=== PATIENT | male | born 1970 | race Caucasian/White ===

== ENCOUNTER 2023-08-12 21:44 | Observation (INO) | payer MEDICARE, OTHER, SELFPAY ==
[2023-08-12 19:50] VITALS: BP 117/65
[2023-08-12 20:00] VITALS: BP 124/72
[2023-08-12] MEDS: NSS 500 IV (20:45)
--- NOTE | 2023-08-12 20:47 | ED.GENMED ---
History of Present Illness
General
Chief Complaint: Skin Problem
Source: spouse
Exam Limitations: non verbal-adult
Time Seen by Provider: 08/12/23 20:11
History of Present Illness
History of Present Illness:
This is a 52 year old male that is brought in by ambulance with c/o open sacral wound. 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 Last night his bed broke and he was unable to be turned and he was in a sitting position for 24
hours. States that know he has an open wound on the sacral area. States that they can't get the bed fixed until tomorrow. States that he also normally wears a [place] cath and he has excoriation on the penis as this was unable to be removed. Denies
any fever, chills, nausea, vomiting, diarrhea.
Past History
Past History
ED Past Medical History: CVA, HTN, Hypercholesterolemia, Seizures and Other (PNA, UTI,, Hydrocephalus, Blind, Eczema, left foot drop, )
ED Past Surgical History: Brain (Craniotomy, FULL STACK ENGINEER shunt), Orthopedic (Right shoulder surgery, Left knee surgery, left foot tendon release,) and Other (G-tube, FULL STACK ENGINEER shunt, cranioplasty, Feb 2020 skin flap surgery to sacral area)
Social History
Tobacco: Non-smoker
Alcohol: None
Drug: None
Personal:
Living: with family
Employment: Disabled
Family History
Family History: Diabetes
Review of Systems
Review of Systems
Other source history: family
All Other Systems: ROS reviewed and negative except as documented in HPI and ROS
Constitutional: Reports no symptoms; Denies fever or chills
EENT: Reports no symptoms
Respiratory: Reports no symptoms
Cardiac: Reports no symptoms
ABD/GI: Denies abdominal pain, nausea, vomiting or diarrhea
: Reports incontinence
Musculoskeletal: Reports no symptoms
Skin: Reports other (Open wound left base at buttocks and top of leg. )
Neurological: Reports no symptoms
Psychiatric: Reports no symptoms
Phy Exam
General Physical Exam
General Presentation: no apparent distress
General age: appears stated age
General Skin: warm and dry
General Habitus: debilitated
General Mental: usual mental status
General Hydration: dry mucous membranes
ENT Exam
ENT Exam: TM's normal
Additional ENT: Patient will open mouth slightly,
Eye Exam
Eye Exam: other (Blind)
Cardiovascular Exam
Cardiovascular Exam: regular rate/rhythm, no edema and normal peripheral pulses
Pulmonary Exam
Pulmonary Exam: lungs clear, no respiratory distress, no rales, chest non tender, no crackles, no rhonchi, no wheezing and no cough
Gastrointestinal Exam
Gastrointestinal Exam: normal bowel sounds, non tender, soft, no organomegaly, no pulsatile mass and non distended
External Findings: gastrostomy tube
Musculoskeletal Exam
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
Skin Exam
Skin Exam: normal color, warm/dry and other (Head of penis excoriated and open wound on the left buttock area at the bend of the left leg. Red, )
Psychiatric Exam
Psychiatric Exam: other (No verbal response)
Course
Orders/Labs/Results
Orders:
Orders
08/12/23 20:36
0.9% Sodium Chloride 500 ml [Nss] 500 ml IV BOLUS
08/12/23 20:41
Basic Metabolic Panel Urgent
Complete Blood Count/With Diff Urgent
Lactic Acid Urgent
Wound Culture [Wound/Abscess/Other Culture] Urgent
LIAM Source: Buttock
Specimen Description:
Date Specimen was Collected: 08/12/23
Time Specimen was Collected: 20:39
08/12/23 21:30
Admit/Transfer Patient As Directed
Co-Sign Provider:
Level of Care: Observation services
Assign to:: Medical/Surgical
Physician / Group: [email or web address]
Diagnosis: Chronic IV sacral decubitus ulcer ( POA) Excoriated Glan penis due to [place]
Reason for Hospitalization: Chronic IV sacral decubitus ulcer ( POA)
Excoriated Glan penis due to [place] cath
Decompensated Chr FTT with disruption of care due to Malfunctioning hopsital bed
08/12/23 21:32
Code Status As Directed
Resuscitation Status: Do not resuscitate
Reached after discussion with pt or family/Healthcare POA: Yes
Decision communicated with: spouse ( POA)
DNR Bracelet Application ONCE
08/12/23 22:43
Bisacodyl [Dulcolax] 10 mg RECTAL [id number] PRN
Dextrose 5%/0.9%Sodchl 1000 ml [D5/0.9% Sodium Chloride] 1,000 ml IV 40 mls/hr
Docusate W/Senna [Senokot-S] 1 tablet PO BIDPRN PRN
Polyethylene Glycol Powder [Miralax] 17 grams PO DAILYPRN PRN
08/12/23 22:43
DIETARY CONSULT Routine
Reason for Consult: PEG nutrition, Mod mal nutrition
WOUND/OSTOMY CONSULT Routine
Reason for Consult: IV sacral decube,Excoriated Glan penis due to [place]
Activity As Directed
Activity Level: With Assistance
Intake/ Output As Directed
Frequency: Per unit guidelines
Vital Signs As Directed
Frequency: Per unit guidelines
Weight As Directed
Frequency: Weekly
DX Deep Vein Thrombosis Video Routine
08/13/23 Breakfast
NPO
Allow oral meds: No
Allow clear liquids: No
08/13/23 18:00
Enoxaparin Sodium [Lovenox] 40 mg SC QPM
08/14/23 06:00
Basic Metabolic Panel IN AM
Complete Blood Count/No Diff IN AM
Abnormal Lab Results
08/12/23
20:41
RBC 4.64 L 10^6/uL
(4.70-6.10)
MPV 10.9 H fL
(7.4-10.4)
Abs Immat Gran (auto) 0.1 H 10^3/uL
(0-0.05)
Absolute Monos (auto) 0.7 H 10^3/uL
(0.1-0.6)
Immature Gran % 0.7 H %
(0-0.5)
Sodium 133 L mmol/L
(135-145)
Chloride 97 L mmol/L
(98-107)
BUN 21 H mg/dl
(9-20)
Creatinine 0.4 L mg/dL
(0.7-1.3)
08/12/23 20:41
08/12/23 20:41
CBC normal, Lactic acid normal at 1.7, Very slight Dehydration.
Vital Signs
Initial and Last Documented VS:
Initial Vital Signs
Temp Pulse Resp BP Pulse Ox
98.6 F 106 16 117/65 95
08/12/23 19:50 08/12/23 19:50 08/12/23 19:50 08/12/23 19:50 08/12/23 19:50
Last Documented Vital Signs
Temp Pulse Resp BP Pulse Ox
98.6 F 98 18 99/65 98
08/12/23 23:16 08/12/23 23:16 08/12/23 23:16 08/12/23 23:16 08/12/23 23:16
MDM/Problems Addressed
Differential Diagnosis Includes:
Social admission. sacral wound
MDM/Problems Addressed:
This is a 52 year old male that comes in with c/o open sacral wound. states that they turn him every hour and his bed broke and he was in a sitting position for 24 hours. Now has open sacral wound and his Penis is excoriated as they were
unable to get the [place] cath off.
Will check labs. Wound culture and admit. Hospitalist notified.
Chronic conditions affecting care:
Bedridden, history of decub
Acute Exacerbation and/or Progression of Chronic Illness:
sacral decub
*Pulse Oximetry
Patient hypoxic: no
*EKG
Interpreted by ED Provider?: NA
Rate: EKG- N/A
*Labor Relations Manager Interpretation
Rate: tachycardiac
Heart Rate: 107
Rhythm: sinus arrhythmia
*Critical Care Note
Total Time (30-74mins, 75-104mins- exclusive of procedures): Not Applicable
ED Attending Note
-
Portions of this chart may have been created with voice recognition software.� Occasional wrong word or��sound alike� substitutions may have occurred due to the inherent limitations of voice recognition software.
Discharge Plan
Departure
Patient Disposition: Admit
Admit to: Med/Surg
Presentation/result/management discussed w/ accepting MD/DO: Hospitalist
Patient with high blood pressure during this ER visit?: No
Condition: Good
Covid-19: Not Applicable
Discharge Problem:
Open wound of left buttock
Interventions
Interventions:
*Risk Screen - Suicide Last Done: 08/12/23 19:50
*General Assessment Last Done: 08/12/23 19:50
*Neglect/Abuse Screening Last Done: 08/12/23 19:50
*ED COVID-19 Vaccine History Last Done: 08/12/23 19:50
*Nursing Disposition Last Done: 08/12/23 22:16
ED-Skin Assessment Last Done: 08/12/23 20:01
Discharge Date and Time
Discharge Date/Time: 08/12/23 22:17
[2023-08-12 20:54] LABS: % Basophils 0.5 % (0-2); % Eosinophils 1.1 % (0-6); % Immature Granulocytes 0.7 % (0-0.5); % Lymphocytes 30.1 % (20.5-51.1); % Monocytes 6.7 % (1.7-9.3); % Neutrophils 60.9 % (42.2-75.2); Absolute Basophils 0.1 10^3/uL (0-0.2); Absolute Eosinophils 0.1 10^3/uL (0-0.7); Absolute Immature Granulocytes 0.1 10^3/uL (0-0.05); Absolute Lymphocytes 3.1 10^3/uL (1.2-3.4); Absolute Monocytes 0.7 10^3/uL (0.1-0.6); Absolute Neutrophils 6.2 10^3/uL (1.4-6.5); Hematocrit 41.5 % (39.0-52.0); Hemoglobin 14.2 g/dL (13.0-18.0); Mean Corp Hgb Conc. 34.2 g/dL (33.0-37.0); Mean Corpuscular Hgb 30.6 pg (27.0-31.0); Mean Corpuscular Volume 89.4 fL (80.0-94.0); Mean Platelet Volume 10.9 fL (7.4-10.4); Nucleated Red Blood Cells % 0 % (-); Platelet Count 181 10^3/uL (130-400); Red Blood Cell Count 4.64 10^6/uL (4.70-6.10); Red Cell Dist. Width 13.6 % (11.5-14.5); White Blood Cell Count 10.2 10^3/uL (4.8-10.8)
[2023-08-12 21:00] VITALS: BP 98/71
[2023-08-12 21:07] LABS: Lactic Acid 1.7 mmol/L (0.7-2.0)
--- NOTE | 2023-08-12 21:23 | HPS.HSE ---
Addendum entered and electronically signed by Garth Sykes MD 08/12/23 21:59:
Laboratory Tests
08/12/23
20:41
Sodium 133 L
Chloride 97 L
BUN 21 H
Creatinine 0.4 L
eGFR > 60.00
Original Note:
Family Physician
-
Family Physician: Michael Mar
Chief Complaint
-
sacral decub ulcer and disruption of care due to Malfunctioning hopsital bed
History of Present Illness
I could not get any information from the patient
Information gathered by chart review and speaking with the ER staff.
HPI
52M Bed bound , total dependent care known IV Sacral DU ( POA) HX CVA with Lt sided hemiparesis PEG dependent nurtion, Sz disorder, HLD, HTN BiB ambulance;
Per
- He was in sitting position for last 24 hrs due to malfunctioning hospital bed at home since last night
- can't get the bed fixed until tomorrow ??
- Known HX chr sacral decub
- Wear [place] cath and he has excoriation on the penis as this was unable to be removed.
Denies any fever, chills, nausea, vomiting, diarrhea.
Medical History
Past Medical History
Past Medical History: Reports Other
Additional Past Medical History:
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
HX stroke with left hemiparesis.
HX craniotomy, status post LEAD CARPENTER shunt.
HXChronic dysphagia with aspiration risk, with PEG tube.
Chronic rose
HX aspiration pneumonia with vent dependent respiratory failure.
Moderate protein calorie malnutrition.
Essential hypertension with labile hypotension.on lisinopril p.r.n.
Past Surgical History: Reports Other
Additional Past Surgical History:
Craniotomy , LEAD CARPENTER shunt
Right shoulder surgery
Left knee surgery, left foot tendon release
G-tube, LEAD CARPENTER shunt, cranioplasty
Feb 2020 skin flap surgery to sacral area
Social History
Tobacco: Non-smoker
Alcohol: None
Drug: None
Personal:
Living: With Family
Family History
Family History: Not pertinent
Allergies / Home Medications
Allergies reflects when Allergies were last updated in [facility].
Home Medications with original date entered in [facility]
Allergy/Medication List:
Allergies
Allergy/AdvReac Type Severity Reaction Status Date / Time
morphine Allergy Itching Verified 10/20/20 23:16
nitrofurantoin Allergy low WBCs Verified 10/20/20 23:16
macrocrystalline
[From Macrobid]
Home Medications
atorvastatin 10 mg tablet 10 mg feeding tube HS High cholesterol 08/04/14
sucralfate 1 gram tablet 1,000 mg feeding tube BID Gastrointestinal issue 08/04/14
amantadine HCl 50 mg/5 mL oral solution 100 mg PEG BID@0700,1300 motor symptoms 08/21/17
aspirin 325 mg tablet 325 mg feeding tube DAILY Blood clot prevention/tx 08/21/17
baclofen 10 mg tablet 10 mg feeding tube TID Muscle spasms 08/21/17
chlorhexidine gluconate 0.12 % mouthwash 5 ml MM BIDPRN PRN worsening of oral presentation 08/21/17
fluticasone propionate 50 mcg/actuation nasal spray,suspension 2 spray intranasal DAILYPRN PRN allergies 08/21/17
labetalol 100 mg tablet 50 mg feeding tube BIDPRN PRN SBP >140 08/21/17
lacosamide 100 mg tablet (Vimpat) 200 mg feeding tube BID Seizures 08/21/17
lamotrigine 100 mg tablet 200 mg feeding tube BID take with 50mgMENTAL 08/21/17
lamotrigine 25 mg chewable dispersible tablet 50 mg feeding tube BID take with 200mg/MENTAL 08/21/17
lorazepam 0.5 mg tablet 0.5 mg feeding tube HS anxiety 08/21/17
miconazole nitrate 2 % topical powder (Miconazorb AF) 1 applic topical BID palm and groin 08/21/17
mupirocin 2 % topical ointment 1 applic topical BID peg site 08/21/17
polyvinyl alcohol-povidone (PF) 1.4 %-0.6 % eye drops in a dropperette (Refresh Classic (PF)) 1 drops BOTH EYES Q2HPRN PRN dry eyes 08/21/17
bisacodyl 5 mg tablet,delayed release 5 mg feeding tube DAILYPRN PRN constipation 04/30/18
clobetasol-emollient 0.05 % topical cream 1 applic TP BIDPRN PRN eczema behind ears 04/30/18
diazepam 5 mg/5 mL (1 mg/mL, 5 mL) oral solution 2 mg PO BID agitation/anxiety 04/30/18
docusate sodium 50 mg/5 mL oral liquid 100 mg feeding tube DAILYPRN PRN constipation 04/30/18
mirtazapine 15 mg tablet 15 mg feeding tube HS Sleep 04/30/18
sodium phosphates 19 gram-7 gram/118 mL enema (Enema) 118 ml RC [id number] PRN no bm in 3 days 04/30/18
tamsulosin 0.4 mg capsule 0.4 mg feeding tube HS Urinary issue 04/30/18
venlafaxine 50 mg tablet 75 mg feeding tube DAILY@1300 Mental Health/Anxiety 04/30/18
venlafaxine 50 mg tablet 150 mg feeding tube DAILY Mental Health/Anxiety 04/30/18
acetaminophen 650 mg/20.3 mL oral solution 650 mg (20.3 mL) PO Q4HPRN PRN temp 100.5, moderate pain ##400 05/08/18
albuterol sulfate 2.5 mg/3 mL (0.083 %) solution for nebulization 2.5 mg (3 mL) inhalation R Q4HPRN PRN Wheezing, SOB ##1 07/12/19
cranberry extract 500 mg capsule 425 mg feeding tube TID Supplement 10/08/20
diazepam 5 mg/5 mL (1 mg/mL, 5 mL) oral solution 2 mg feeding tube DAILYPRN PRN agitation 10/08/20
lisinopril 20 mg tablet 20 mg feeding tube DAILYPRN PRN SBP >140 10/08/20
polyethylene glycol 3350 17 gram oral powder packet 17 grams feeding tube DAILYPRN PRN constipation 10/08/20
methenamine hippurate 1 gram tablet 1 g feeding tube BID Infection ##0 10/12/20
Review of Systems
-
Constitutional: Reports No Symptoms
EENT: Reports No Symptoms
Respiratory: Reports No Symptoms
Cardiac: Reports No Symptoms
Abdomen/GI: Reports No Symptoms
: Reports See HPI
Musculoskeletal: Reports No Symptoms
Skin: Reports See HPI
Neurological: Reports No Symptoms
Endocrine: Reports No Symptoms
Hematologic/Lymphatic: Reports No Symptoms
Psych: Reports No Symptoms
Physical Exam
Vital Signs
Vital Signs
Temp Pulse Resp BP Pulse Ox
98.6 F 99 19 98/71 98
08/12/23 19:50 08/12/23 21:15 08/12/23 20:45 08/12/23 21:00 08/12/23 20:15
Physical Exam
General: Appears Chronically Ill; No Conversant (non verbal , constant corse tremors )
HEENT: Other (Legally blind )
Respiratory: Non Labored Respirations
Cardiac: S1/S2 and Regular Rhythm
GI: Soft, Non Tender, Ostomy (PEG ) and Other
Genito-urinary: Other (Glan penis is excoriated)
Skin: Ulcers (, open wound on the left buttock area at the bend of the left leg. 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
Neuro: Awake
Psych: Other
Laboratory Results
-
08/12/23 20:41
08/12/23 20:41
Laboratory Results
Lactic Acid 1.7 mmol/L (0.7-2.0) 08/12/23 20:41
Total Bilirubin Cancelled 08/12/23 20:41
AST Cancelled 08/12/23 20:41
ALT Cancelled 08/12/23 20:41
Alkaline Phosphatase Cancelled 08/12/23 20:41
Data Reviewed
-
Lab Data: Labs Reviewed by me
Old Records: Reviewed
Impression/Plan
-
Reviewed VS: Afebrile HR 100 BP 117/65 - 125/72 RR20 POx 98
Data
WCC 10
Pending BMP
Pending LA
WD cx sent
Last hospitalist admission:10/20/20 - 10/25/20
PRIMARY DIAGNOSIS:
1. Sepsis probably due to left ischial tuberosity osteomyelitis.
2. Acute hypoxic respiratory failure which resolved, patient was weaned down to room air.
3. Dirty urinalysis with possible urinary tract infection. However, reports the sample was obtained from the bag.
ID recommends to observe off antibiotic.
ASSESSMENT & PLAN
Chronic IV sacral decubitus ulcer ( POA) with prior HX left ischial tuberosity osteomyelitis: Prior HX skin flap surgery to sacral area ( Feb 2020 Dr Schroeder)
Excoriated Glan penis due to [place] cath
- Hold off any further ABx till Wd consult
- Wd care evaluation
Chr FTT with disruption of care due to Malfunctioning hopsital bed
Chr PEG nutrition: Moderate protein calorie malnutrition.
[place] cath: chr
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
- IVF
- adhesion tester consult for PEG TF
- CRM consult
Chr pre existing condition:
HX stroke with left hemiparesis.
HX craniotomy, status post LEAD CARPENTER shunt.
HX Chronic dysphagia with aspiration risk, with PEG tube.
Chronic cath
HX aspiration pneumonia with vent dependent respiratory failure.
Essential hypertension with labile hypotension
- Pending Rx reconciliation
DVT Px: LMWH
Code: DNR per POA/NoK spouse in the presence of ER MILLY/ Jennie Mathews
Obs MS
[2023-08-12 21:52] LABS: Blood Urea Nitrogen 21 mg/dl (9-20); Calcium 9.7 mg/dl (8.4-10.2); Carbon Dioxide 28 mmol/L (22-30); Chloride 97 mmol/L (98-107); Glucose 99 mg/dl (70-99); Sodium 133 mmol/L (135-145); eGFR > 60.00
[2023-08-12 23:16] VITALS: BP 99/65
[2023-08-13] MEDS: D5/0.9% SODIUM CHLORIDE 1000 IV (00:14)
[2023-08-13] MEDS: ATIVAN 0.5 MG TUBE (00:15)
[2023-08-13] MEDS: TYLENOL ORAL SOLUTION 650 MG PO (00:25)
[2023-08-13] MEDS: REMERON 15 MG TUBE (00:26)
[2023-08-13] MEDS: VIMPAT 200 MG TUBE ×2 (00:38→10:04)
[2023-08-13] MEDS: BACTROBAN 2% OINTMENT 1 APPLIC TOPICAL ×2 (00:44→10:04)
--- NOTE | 2023-08-13 05:04 | PTCARENOTE ---
Patient received from ED via stretcher and was pulled to bed by staff. Patient's spouse and patient's caregiver at the bedside. They were oriented to room and surroundings. Patient nnverbal, tremores noted., left hemiparesis and b/l foot drop
noted. HRR, Breath Sounds are decreased. +BS, incontinent of bowel and bladder. Wound care as documented. Patient on air bed for sacral wound. IVF as ordered. VSS
[2023-08-13] MEDS: SYMMETREL SYRUP 100 MG TUBE (06:10)
[2023-08-13 07:00] VITALS: BP 102/73
--- NOTE | 2023-08-13 11:50 | WOUNDNOTE ---
WON RN note: Patient admitted with open wound of L buttock.
See H&P for complete history. Patient lives with his and has caregiver Marley.
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 R ischial PI stage 4-flap done.
Wound Location and type/assessment: Patient known to service last seen 10/21/20 for R ischial stage 4 PI. Since then wound healed s/p flap. Now presents with old healed L ischial PI re opened wound. Caregiver Marley reports another caregiver was
with patient and air bed became locked in a sitting position, couldn't get it unlocked for 24hrs. Unable to reach bed service for assistance and patient's also tried to contact bed company. Caregiver states his wound opened back up due to
prolonged sitting. Has a ROHO cushion for chair but was unable to get patient out of sitting position in locked bed. Now admitted with suspected stage 3 PI on L ischium and stage 2 PI on L posterior thigh. Has few scattered darker red areas within
Ischium wound that may evolve and open. Tiny open area in center of larger Ischial wound that is approximately 0.5x0.5x0.5cm no palpable bone, scant chatterjee slough at base, remainder or wound pink. Caregiver also reported that [place] condom catheter was
on for 24 hrs causing mild excoriation to tip of penis, usually only used at night time. Heels are intact, old scars on ankles form previous abrasions. Has offloading heel boots at home, did not bring in. Buttock wound culture pending. Incontinent
of loose stools.
Appetite: NPO. Has tube feeding. Protein supplement in feedings daily.
Pressure redistribution devices in place: Versa care Air bed. Pillow under calves. Called [employer] for Tru[employer]ue lite heel boots.
Plan: L ischial wound care done with silver alginate, dry gauze dressing, can resume use of silver collagen dressing at home, Marley confirmed has used in past with good results. Foams applied to heels to protect and offloading boots. Skin care
and barrier cream to penis prn. is working on purchasing a new air bed, contacting company today reports caregiver. Spoke with JEANNIE Patterson and updated on bed situation, may have other ideas to recommend to family. Also aware will need VN with
wound care nurse to follow patient and wounds. Recommend following with wound care center if wound not healing. Will confirm orders with hospitalist. Discussed plan with [facility] Salcedo, Care plan to be updated and will follow as needed.
--- NOTE | 2023-08-13 12:16 | W.DS.TRANS ---
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
-
Discharge Instructions:
Discharge Diagnosis/Procedures Chronic failure to thrive.
Chronic sacral wound
Diet Tube feeding
Instructions:
Stand-Alone Forms:
Changes to Home Medications: No
Discharge Medications:
DC Medications w/original date entered in [facility]
atorvastatin 10 mg tablet 10 mg feeding tube HS High cholesterol 08/04/14
sucralfate 1 gram tablet 1,000 mg feeding tube BID Gastrointestinal issue 08/04/14
amantadine HCl 50 mg/5 mL oral solution 100 mg PEG BID@0700,1300 motor symptoms 08/21/17
aspirin 325 mg tablet 325 mg feeding tube DAILY Blood clot prevention/tx 08/21/17
baclofen 10 mg tablet 10 mg feeding tube TID Muscle spasms 08/21/17
chlorhexidine gluconate 0.12 % mouthwash 15 ml MM BID 08/21/17
fluticasone propionate 50 mcg/actuation nasal spray,suspension 2 spray intranasal DAILYPRN PRN allergies 08/21/17
labetalol 100 mg tablet 25 mg feeding tube BIDPRN PRN SBP >140 08/21/17
lacosamide 100 mg tablet (Vimpat) 200 mg feeding tube BID Seizures 08/21/17
lamotrigine 100 mg tablet 200 mg feeding tube Q12H take with 50mgMENTAL 08/21/17
lamotrigine 25 mg chewable dispersible tablet 50 mg feeding tube BID take with 200mg/MENTAL 08/21/17
lorazepam 0.5 mg tablet 0.5 mg feeding tube HS anxiety 08/21/17
miconazole nitrate 2 % topical powder (Miconazorb AF) 1 applic topical BID palm and groin 08/21/17
mupirocin 2 % topical ointment 1 applic topical BID peg site 08/21/17
bisacodyl 5 mg tablet,delayed release 5 mg feeding tube DAILYPRN PRN constipation 04/30/18
clobetasol-emollient 0.05 % topical cream 1 applic TP BID 04/30/18
docusate sodium 50 mg/5 mL oral liquid 100 mg feeding tube DAILYPRN PRN constipation 04/30/18
mirtazapine 15 mg tablet 15 mg feeding tube HS Sleep 04/30/18
sodium phosphates 19 gram-7 gram/118 mL enema (Enema) 118 ml RC [id number] PRN no bm in 3 days 04/30/18
tamsulosin 0.4 mg capsule 0.4 mg feeding tube HS Urinary issue 04/30/18
venlafaxine 50 mg tablet 75 mg feeding tube TID Mental Health/Anxiety 04/30/18
acetaminophen 650 mg/20.3 mL oral solution 650 mg (20.3 mL) PO Q4HPRN PRN temp 100.5, moderate pain ##400 05/08/18
albuterol sulfate 2.5 mg/3 mL (0.083 %) solution for nebulization 2.5 mg (3 mL) inhalation R Q4HPRN PRN Wheezing, SOB ##1 07/12/19
cranberry extract 500 mg capsule 425 mg feeding tube TID Supplement 10/08/20
lisinopril 20 mg tablet 20 mg feeding tube DAILY 10/08/20
polyethylene glycol 3350 17 gram oral powder packet 17 grams feeding tube DAILYPRN PRN constipation 10/08/20
methenamine hippurate 1 gram tablet 1 g feeding tube BID Infection ##0 10/12/20
erythromycin 5 mg/gram (0.5 %) eye ointment 0.5 inch ophthalmic (eye) TID 08/13/23
hypromellose 2.5 % eye drops 1 drp ophthalmic (eye) Q2 08/13/23
methenamine hippurate 1 gram tablet (Hiprex) 1 g feeding tube BID 08/13/23
Home Medication Changes
Pending Results: No
--- NOTE | 2023-08-13 12:27 | CM ---
Patient seen at bedside with patient and caregiver at bedside. Patient non verbal and bed bound. Patient indicated that Dr. Shelton is his PCP and they use the [facility] on [facility]. Patient had wheelchair van and will
transport patient home, CM reviewed OBS/[place] form with her and signed form placed on chart. CM called to [facility] to request wound care for patient. CM will send referral via all scripts. CM will continue to follow for discharge planning needs.
Plan; home with caregiver in place/[facility] for wound care.
[2023-08-13 13:33] VITALS: BP 119/81
== END 2023-08-13 14:39 | disposition home health service (06) ==
LOC: 3 WEST ACU 21:44
PROVIDERS: Clinical Nurse Specialist Family Health; ADMITTING PHYSICIAN Internal Medicine; ATTENDING PHYSICIAN Internal Medicine; EMERGENCY PHYSICIAN Emergency Medicine; FAMILY PHYSICIAN Internal Medicine Geriatric Medicine
DX: A41.9 Sepsis, unspecified organism (principal); L89.154 Pressure ulcer of sacral region, stage 4; J96.01 Acute respiratory failure with hypoxia; R62.7 Adult failure to thrive; E78.00 Pure hypercholesterolemia, unspecified; M21.372 Foot drop, left foot; I10 Essential (primary) hypertension; E78.5 Hyperlipidemia, unspecified; G40.909 Epilepsy, unspecified, not intractable, without status epilepticus; E44.0 Moderate protein-calorie malnutrition; I69.354 Hemiplegia and hemiparesis following cerebral infarction affecting left non-dominant side; S30.812A Abrasion of penis, initial encounter; Y33.XXXA Other specified events, undetermined intent, initial encounter; Y93.89 Activity, other specified; Y92.9 Unspecified place or not applicable; Z68.23 Body mass index [BMI] 23.0-23.9, adult; Z87.440 Personal history of urinary (tract) infections; Z87.01 Personal history of pneumonia (recurrent); Z66 Do not resuscitate; Z83.3 Family history of diabetes mellitus; Z74.01 Bed confinement status; Z93.1 Gastrostomy status; Z98.2 Presence of cerebrospinal fluid drainage device; Z88.3 Allergy status to other anti-infective agents; Z88.5 Allergy status to narcotic agent
CPT/HCPCS: 80048; 83605; 85025; 87070; 87077; 87186; 87205; 96360; 99285; G0378

== ENCOUNTER 2024-09-20 14:09 | Inpatient (IN) | payer MEDICARE, OTHER, SELFPAY ==
[2024-09-20] VITALS (7 sets, daily range): BP systolic 95–122; BP diastolic 65–75; BMI 21.5
--- NOTE | 2024-09-20 10:49 | ED.GENMED ---
History of Present Illness
General
Chief Complaint: Fever
Time Seen by Provider: 09/20/24 10:26
History of Present Illness
History of Present Illness:
54-year-old male with prior history of stroke with history of hemiparesis and nonverbal status, PEG tube dependent, presenting to the emergency department for fever. Patient presents with , from home, spiked a temperature last evening.
Patient's stroke was about 10 years ago, has had progressive decline, which has been worsening in the past several weeks with increased weight loss and worsening sacral decubitus wound. ultimately is seeking hospice care. Patient pulled out
his PEG tube prior to arrival. Patient is unable to answer any additional questioning given his chronic history.
Past History
Past History
ED Past Medical History: CVA, HTN, Hypercholesterolemia, Seizures and Other (PNA, UTI,, Hydrocephalus, Blind, Eczema, left foot drop, )
ED Past Surgical History: Brain (Craniotomy, FINISHER FINE DIAMOND DIES shunt), Orthopedic (Right shoulder surgery, Left knee surgery, left foot tendon release,) and Other (G-tube, FINISHER FINE DIAMOND DIES shunt, cranioplasty, Feb 2020 skin flap surgery to sacral area)
Social History
Tobacco: Non-smoker
Alcohol: None
Drug: None
Personal:
Living: with family
Employment: Disabled
Family History
Family History: Diabetes
Phy Exam
Physical Exam
Physical Exam:
General: Dry mucous membranes
HEENT: protecting airway, ocular abnormality to the left eye, reported as chronic, pinpoint pupils, nonreactive
Neck: appears supple
CV: Tachycardic, regular rhythm, no evidence of cyanosis
Resp: No accessory muscle use, no increased work of breathing, lungs clear to auscultation bilaterally
Abd: No distention
Extremities: No deformities, no swelling
Neuro: Awake, no verbal or motor response
: deferred
Rectal: deferred
Psych: Normal affect
Skin: Stage IV sacral decubitus ulceration
Course
Orders/Labs/Results
Orders:
Orders
09/20/24 10:39
Electrocardiogram (*1) Urgent
Reason for Study: Other
Other Reason for Exam: Possible Sepsis
EKG- Treatment ONCE
09/20/24 10:41
Complete Blood Count/With Diff Urgent
Comprehensive Metabolic Panel Urgent
Lactic Acid Q4H
Comment: ON ICE, CANCEL 2ND ORDER IF FIRST LACTIC ACID LEVEL <2
Blood Culture Q20M
[facility] Source: Blood/Venous
Specimen Description:
Comment: Urgent from separate sites. If patient screens positive for possible sepsis
Blood Culture Q20M
[facility] Source: Blood/Venous
Specimen Description:
Comment: Urgent from separate sites. If patient screens positive for possible sepsis
09/20/24 10:45
Case Management Consult ONCE
Case Management Consult: Hospice
Hospice: Evaluation and treat
0.9% Sodium Chloride 1000 ml [Nss] 1,000 ml IV BOLUS
Acetaminophen 1000MG/100Ml [Ofirmev] 1,000 mg in 100 ml IV ONCE
Acetaminophen IV Indication:: No OK & No Enteral Access
09/20/24 14:45
Lactic Acid Q4H
Comment: ON ICE, CANCEL 2ND ORDER IF FIRST LACTIC ACID LEVEL <2
Abnormal Lab Results
09/20/24
10:41
RBC 4.41 L 10^6/uL
(4.70-6.10)
Hgb 12.6 L g/dL
(13.0-18.0)
MCHC 31.2 L g/dL
(33.0-37.0)
Absolute Neuts (auto) 6.7 H 10^3/uL
(1.4-6.5)
Absolute Lymphs (auto) 1.0 L 10^3/uL
(1.2-3.4)
Neutrophils % 81.5 H %
(42.2-75.2)
Lymphocytes % 12.3 L %
(20.5-51.1)
Carbon Dioxide 32 H mmol/L
(22-30)
BUN 21 H mg/dl
(9-20)
Creatinine 0.6 L mg/dL
(0.7-1.3)
Glucose 111 H mg/dl
(70-99)
Lactic Acid 2.7 H mmol/L
(0.7-2.0)
09/20/24 10:41
09/20/24 10:41
Vital Signs
Initial and Last Documented VS:
Initial Vital Signs
Temp
100.5 F H
09/20/24 10:33
Last Documented Vital Signs
Temp Pulse Resp BP Pulse Ox
100.5 F H 105 19 122/75 95
09/20/24 10:33 09/20/24 11:30 09/20/24 11:30 09/20/24 11:26 09/20/24 11:30
MDM/Problems Addressed
MDM/Problems Addressed:
54-year-old male with history of prior stroke with nonverbal status and PEG tube dependence as well as sacral decubitus ulceration presenting for fever and initiation of hospice. Vital signs on arrival are significant for fever and tachycardia
On exam, patient is overall very unwell in appearance, currently meeting criteria for SIRS with suspected source being likely sacral decubitus ulceration. However, family arrives, notes that they would like to pursue hospice. Will send laboratory
analysis at this time until we discussed with case management and hospice. Holding antibiotics. Will start patient on fluids, is not currently getting any feeds, pulled out his PEG tube prior to arrival. Will administer IV Tylenol for comfort and
fever.
12:10 -discussed with both case management and hospice. Advised admission under comfort care and will reassess tomorrow for initiation of hospice. Hospice nurse at bedside
*Pulse Oximetry
SaO2: 98
Oxygen Mode of Delivery: Room air
Patient hypoxic: no
*Critical Care Note
Total Time (30-74mins, 75-104mins- exclusive of procedures): Not Applicable
ED Attending Note
-
Portions of this chart may have been created with voice recognition software.� Occasional wrong word or��sound alike� substitutions may have occurred due to the inherent limitations of voice recognition software.
Discharge Plan
Departure
Prescriptions:
No Action
atorvastatin 10 MG tablet
10 mg feeding tube HS
sucralfate 1 GRAM tablet
1,000 mg feeding tube BID
amantadine HCl 100 MG/10 ML solution
100 mg PEG BID@0700,1300
Patient Comments:
do not give past 1pm or patient will be up all night as per family and hospital nurse
aspirin 325 MG tablet
325 mg feeding tube DAILY
miconazole nitrate [Miconazorb AF] 1 APPLIC powder
1 applic topical BID
lamotrigine 25 MG tablet, chewable dispersible
50 mg feeding tube BID
Patient Comments:
09/05/17: Patient takes with Lamictal 200mg
lorazepam 0.5 MG tablet
0.5 mg feeding tube HS
baclofen 10 MG tablet
10 mg feeding tube TID
mupirocin 1 APPLIC ointment
1 applic topical BID
Patient Comments:
09/05/17: Apply to PEG tube twice a day
labetalol 100 MG tablet
25 mg feeding tube BIDPRN PRN (Reason: SBP >140)
Patient Comments:
only for sbp>140 hold for sbp<140
fluticasone propionate 1 SPRAY spray,suspension
2 spray intranasal DAILYPRN PRN (Reason: allergies)
lamotrigine 100 MG tablet
200 mg feeding tube Q12H
Patient Comments:
09/05/17: Patient takes with Lamictal 50mg
chlorhexidine gluconate 15 ML mouthwash
15 ml MM BID
lacosamide [Vimpat] 100 MG tablet
200 mg feeding tube BID
tamsulosin 0.4 MG capsule
0.4 mg feeding tube HS
docusate sodium 100 MG/10 ML liquid
100 mg feeding tube DAILYPRN PRN (Reason: constipation)
venlafaxine 50 MG tablet
75 mg feeding tube TID
bisacodyl 5 MG tablet,delayed release (DR/EC)
5 mg feeding tube DAILYPRN PRN (Reason: constipation)
mirtazapine 15 MG tablet
15 mg feeding tube HS
clobetasol-emollient 15 GM cream
1 applic TP BID
Rx Instructions:
and elbow
Enema 135 ML enema
118 ml RC [id number] PRN (Reason: no bm in 3 days)
acetaminophen 650 MG/20.3 ML solution
650 mg PO Q4HPRN PRN (Reason: temp 100.5, moderate pain) Qty: 400 0RF
albuterol sulfate 2.5 MG/3 ML solution for nebulization
2.5 mg inhalation R Q4HPRN PRN (Reason: Wheezing, SOB) Qty: 1 0RF
polyethylene glycol 3350 17 GRAMS powder in packet
17 grams feeding tube DAILYPRN PRN (Reason: constipation)
lisinopril 20 MG tablet
20 mg feeding tube DAILY
Patient Comments:
only for sbp>140 hold for sbp<140
cranberry extract 500 MG capsule
425 mg feeding tube TID
Patient Comments:
powder capsules
methenamine hippurate 1 GRAM tablet
1 g feeding tube BID Qty: 0 0RF
Rx Instructions:
once off Bactrim
methenamine hippurate [Hiprex] 1 gram Tablet
1 g FEEDING TUBE BID
Rx Instructions:
duplicate
erythromycin 5 mg/gram (0.5 %) Ointment
0.5 inch OPHTHALMIC (EYE) TID
hypromellose 2.5 % Drops
1 drp OPHTHALMIC (EYE) Q2
Referrals:
Michael Mar MD [Family Provider, Internal Medicine]
Interventions
Interventions:
*Risk Screen - Suicide Last Done: 09/20/24 11:07
*General Assessment Last Done: 09/20/24 11:07
*Neglect/Abuse Screening Last Done: 09/20/24 11:07
*ED- Fall Risk Assessment Last Done: 09/20/24 11:07
*ED COVID-19 Vaccine History Last Done: 09/20/24 11:07
ED- Neurological Assessment Last Done: 09/20/24 10:34
ED-Skin Assessment Last Done: 09/20/24 10:37
Discharge Date and Time
Print Language: RUSSIAN
[2024-09-20] MEDS: OFIRMEV 100 IV (11:01)
[2024-09-20] MEDS: NSS 1000 IV (11:01)
[2024-09-20 11:17] LABS: Hematocrit 40.4 % (39.0-52.0); Hemoglobin 12.6 g/dL (13.0-18.0); Mean Corp Hgb Conc. 31.2 g/dL (33.0-37.0); Mean Corpuscular Volume 91.6 fL (80.0-94.0); Nucleated Red Blood Cells % 0 % (-); Platelet Count 196 10^3/uL (130-400); Red Cell Dist. Width 13.7 % (11.5-14.5)
--- NOTE | 2024-09-20 11:17 | CM ---
automotive center manager reviewed patient's chart and met with patient and spouse at bedside, per spouse patient is nonverbal, bedbound and patient pulled out his peg tube. Patient has 5 children, per spouse she is interested in hospice and requested evaluation
for GIP, options reviewed and patient's spouse has selected [facility] and referral sent to [facility] for GIP.
Plan; Hospice evaluation for GIP.
[2024-09-20 11:33] LABS: ALT (SGPT) 19 U/L (0-50); AST (SGOT) 22 U/L (17-59); Albumin 4.6 g/dl (3.5-5.0); Alkaline Phosphatase 94 U/L (38-126); Blood Urea Nitrogen 21 mg/dl (9-20); Calcium 9.7 mg/dl (8.4-10.2); Carbon Dioxide 32 mmol/L (22-30); Chloride 100 mmol/L (98-107); Estimated Creatinine Clearance > 125 ml/min; Glucose 111 mg/dl (70-99); Potassium 4.1 mmol/L (3.5-5.1); Sodium 144 mmol/L (135-145); Total Protein 8.0 g/dl (6.3-8.2); eGFR > 60.00
--- NOTE | 2024-09-20 12:36 | HPS.HSE ---
Addendum entered and electronically signed by Cameron Gray MD 09/20/24 14:16:
Seen and examined by me independently in collaboration with the nurse practitioner Edison.
Past medical history/social history/medication/allergies reviewed.
Lab data and imaging data reviewed.
Unfortunate gentleman who had nontraumatic intracranial hemorrhage 11 years ago and has been in persistent vegetative state been taking care at home. Now presents with fever and noted to be septic.
Long discussions with the and one of the son at bedside.
Due to persistent vegetative state and poor prognosis and based on prior wishes of patient and family the decision was made for comfort measures only and treat the symptoms and not the disease process at this point in his life.
We discussed with the about comfort measures. She is agreeable.
He is inpatient appropriate for comfort measures as he is cannot brewing sepsis and might become quickly symptomatic.
Will start patient on comfort measures only. Hold on nutrition and IV fluids and this was discussed with the family.
Original Note:
Family Physician
-
Family Physician: Michael Mar
Chief Complaint
-
fever
History of Present Illness
54-year-old male with prior history of stroke with history of hemiparesis and nonverbal status, PEG tube dependent, presenting to the emergency department for fever. he spiked fever of 103 last night. Patient's stroke was about 10 years ago, has
had progressive decline, which has been worsening in the past several weeks with increased weight loss and worsening sacral decubitus wound.ROS limited.
he had an episode of vomiting yesterday. he also had diarrhea yesterday. he pulled his peg tube yesterday, which was replaced here in the ER. seeking hospice care. she wants to keep him comfort.
patient received Tylenol, normal saline in ER. blood culture sent from ER.
Medical History
Past Medical History
Past Medical History: Reports Other
Additional Past Medical History:
quadriplasty
Migraines
Seizures hypercholesterolemia
CVA hypertension
Prophylaxis due to stroke
Pneumonia
Diarrhea
Past Surgical History: Reports Other
Additional Past Surgical History:
Craniotomy/PRODUCTION TOOL ENGINEER shunt
Right rotator cuff surgery
PEG tube
Social History
Tobacco: Non-smoker
Alcohol: None
Drug: None
Personal:
Living: With Family
Family History
Family History: Not pertinent
Allergies / Home Medications
Allergies reflects when Allergies were last updated in [facility].
Home Medications with original date entered in [facility]
Allergy/Medication List:
Allergies
Allergy/AdvReac Type Severity Reaction Status Date / Time
morphine Allergy Itching Verified 09/20/24 10:26
nitrofurantoin Allergy low WBCs Verified 09/20/24 10:26
macrocrystalline (From
Macrobid)
Home Medications
atorvastatin 10 mg tablet 10 mg feeding tube HS High cholesterol 08/04/14
sucralfate 1 gram tablet 1,000 mg feeding tube BID Gastrointestinal issue 08/04/14
amantadine HCl 50 mg/5 mL oral solution 100 mg PEG BID@0700,1300 motor symptoms 08/21/17
aspirin 325 mg tablet 325 mg feeding tube DAILY Blood clot prevention/tx 08/21/17
baclofen 10 mg tablet 10 mg feeding tube TID Muscle spasms 08/21/17
chlorhexidine gluconate 0.12 % mouthwash 15 ml MM BID 08/21/17
fluticasone propionate 50 mcg/actuation nasal spray,suspension 2 spray intranasal DAILYPRN PRN allergies 08/21/17
labetalol 100 mg tablet 25 mg feeding tube BIDPRN PRN SBP >140 08/21/17
lacosamide 100 mg tablet (Vimpat) 200 mg feeding tube BID Seizures 08/21/17
lamotrigine 100 mg tablet 200 mg feeding tube Q12H take with 50mgMENTAL 08/21/17
lamotrigine 25 mg chewable dispersible tablet 50 mg feeding tube BID take with 200mg/MENTAL 08/21/17
lorazepam 0.5 mg tablet 0.5 mg feeding tube HS anxiety 08/21/17
miconazole nitrate 2 % topical powder (Miconazorb AF) 1 applic topical BID palm and groin 08/21/17
mupirocin 2 % topical ointment 1 applic topical BID peg site 08/21/17
bisacodyl 5 mg tablet,delayed release 5 mg feeding tube DAILYPRN PRN constipation 04/30/18
clobetasol-emollient 0.05 % topical cream 1 applic TP BID 04/30/18
docusate sodium 50 mg/5 mL oral liquid 100 mg feeding tube DAILYPRN PRN constipation 04/30/18
mirtazapine 15 mg tablet 15 mg feeding tube HS Sleep 04/30/18
sodium phosphates 19 gram-7 gram/118 mL enema (Enema) 118 ml RC [id number] PRN no bm in 3 days 04/30/18
tamsulosin 0.4 mg capsule 0.4 mg feeding tube HS Urinary issue 04/30/18
venlafaxine 50 mg tablet 75 mg feeding tube TID Mental Health/Anxiety 04/30/18
acetaminophen 650 mg/20.3 mL oral solution 650 mg (20.3 mL) PO Q4HPRN PRN temp 100.5, moderate pain ##400 05/08/18
albuterol sulfate 2.5 mg/3 mL (0.083 %) solution for nebulization 2.5 mg (3 mL) inhalation R Q4HPRN PRN Wheezing, SOB ##1 07/12/19
cranberry extract 500 mg capsule 425 mg feeding tube TID Supplement 10/08/20
lisinopril 20 mg tablet 20 mg feeding tube DAILY 10/08/20
polyethylene glycol 3350 17 gram oral powder packet 17 grams feeding tube DAILYPRN PRN constipation 10/08/20
methenamine hippurate 1 gram tablet 1 g feeding tube BID Infection ##0 10/12/20
erythromycin 5 mg/gram (0.5 %) eye ointment 0.5 inch ophthalmic (eye) TID 08/13/23
hypromellose 2.5 % eye drops 1 drp ophthalmic (eye) Q2 08/13/23
methenamine hippurate 1 gram tablet (Hiprex) 1 g feeding tube BID 08/13/23
Review of Systems
-
Unable to obtain full review of systems at this time due to: Acuity
Physical Exam
Vital Signs
Vital Signs
Temp Pulse Resp BP Pulse Ox
100.5 F H 105 19 122/75 95
09/20/24 10:33 09/20/24 11:30 09/20/24 11:30 09/20/24 11:26 09/20/24 11:30
Physical Exam
General: Well Developed, Well Nourished and No Apparent Distress
HEENT: NormoCephalic, Moist mucous membranes and Atraumatic
Respiratory: Clear
Cardiac: S1/S2 and Regular Rhythm; No Murmur or Rub
GI: Soft, Non Tender, Non Distended and Normal Bowel Sounds; No Organomegaly
Rectal: Deferred by Provider
Musculoskeletal: No Clubbing, No Cyanosis and No Edema
Skin: Rash and Other (sacral decub)
Neuro: Nonfocal/grossly intact
Laboratory Results
-
09/20/24 10:41
09/20/24 10:41
Laboratory Results
Lactic Acid 2.7 mmol/L (0.7-2.0) H 09/20/24 10:41
Total Bilirubin 0.7 mg/dl (0.2-1.3) 09/20/24 10:41
AST 22 U/L (17-59) 09/20/24 10:41
ALT 19 U/L (0-50) 09/20/24 10:41
Alkaline Phosphatase 94 U/L (38-126) 09/20/24 10:41
Data Reviewed
-
Lab Data: Labs Reviewed by me
Impression/Plan
-
#fever likely from sacral decub
#sepsis as evident by tachy, fever and hypotension
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
-Tylenol prn for fever
-family seeking hospice
-admitting to comfort care
-CM consulted for hospice.
#Essential hypertension: BP soft in ER. CTm
#Hyperlipidemia
#Hx CVA with resultant left hemiparesis and dysphagia s/p PEG tube: Continue baclofen.
#Seizure disorder: Continue Lamictal and Vimpat
#NPH s/p PRODUCTION TOOL ENGINEER shunt: Stable
#Generalized anxiety disorder: Ativan
#Recurrent urinary tract infection
#Code Status:DNR
--- NOTE | 2024-09-20 12:45 | HOSPNOTE ---
Addendum entered by Araceli Robertson RN 09/20/24 14:26:
Alina met with pt's Paula - at this time he does not meet GIP criteria and will be admitted to the hospital for comfort care.
Original Note:
Rec'd referral - discussed via TT with Edie Wagner (Hospice PRINT MACHINE OPERATOR welcome wagon hostess) - since there are no symptoms that are requiring IV medications at this time the plan is to admit to 2N under comfort care and we can reassess tomorrow to see if there are
any changes. TT to Dr Castro in the ED and she was in agreement with the plan. Notes indicated that family was unable to take him home so placement would be needed if he does not meet GIP criteria. Alina Poon - order expediter to do an in person
introduction to Hospice with the family. CM notified of the plan via TT. Hospice will continue to follow
[2024-09-20] MEDS: ATIVAN 0.5 MG TUBE ×2 (16:25→21:15)
--- NOTE | 2024-09-20 16:41 | PTCARENOTE ---
Patient tense, rigid, eyes wide open, RR 24, right hand shaking, blowing in and out of mouth quickly.
[2024-09-20] MEDS: VIMPAT 200 MG PO (21:10)
[2024-09-20] MEDS: LAMICTAL 250 MG TUBE (21:10)
[2024-09-20] MEDS: TYLENOL/FEVERALL 650 MG RECTAL (21:22)
[2024-09-21 07:20] VITALS: BP 114/72
--- NOTE | 2024-09-21 10:15 | PTCARENOTE ---
Patient crying, shaking and grabbing at peg tube after being repositioned. Family and caregiver at bedside and are trying to sooth patient. Patient continues to cry and shake. Physician and Hospice nurse made aware. Peg tube is sliding in and out
from 4cm to 10cm. RN redressed peg and attempted to tape peg to prevent in from sliding in and out. Patient grabbed peg tube and was grimacing. Family at bedside and wants peg tube removed. Physician made aware.
--- NOTE | 2024-09-21 10:39 | HOSPNOTE ---
Patient is going to be admitted inpatient hospice today for the management of pain and anxiety that could not be managed in the outpatient setting. Patient ordered IV dilaudid and valium this morning. Patient is crying and shaking in pain and
discomfort. Peg tube is also bleeding at site and causing increase discomfort as well. Spouse is bedside and in agreement. Update provided with RN and Attending. Hospice to meet with spouse and get consents signed. Hospice will visit daily.
Admissions notified as well.
[2024-09-21] MEDS: DILAUDID 0.5 MG IV ×3 (10:40→14:38)
[2024-09-21] MEDS: VALIUM INJECTION 2 MG IV ×2 (11:12→12:56)
--- NOTE | 2024-09-21 12:00 | PTCARENOTE ---
Patient appears to be more comfortable, but still tense. Family at bedside.
--- NOTE | 2024-09-21 12:50 | PTCARENOTE ---
Patient crying, grimacing, shaking and tense. Physician at bedside, order obtained to remove PEG tube and give additional dose of Valium now with Dilaudid. Spouse at bedside and agree with plan of care.
--- NOTE | 2024-09-21 14:11 | W.PN.HOSP.TC ---
Today's Communication/Plan
-
DC
Assessment / Plan
Assessment / Plan
#Fever likely from sacral decub
#sepsis as evident by tachy, fever and hypotension
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
-Tylenol prn for fever
-family seeking hospice
-admitted to comfort care
#Essential hypertension: BP soft in ER. CTm
#Hyperlipidemia
#Hx CVA with resultant left hemiparesis and dysphagia s/p PEG tube: Continue baclofen.
#Seizure disorder: Continue Lamictal and Vimpat
#NPH s/p ATTENDANT CHILD ACTIVITY shunt: Stable
#Generalized anxiety disorder: Ativan
#Recurrent urinary tract infection
#Code Status:DNR
DW Hospice team and
Pt family signing in for hospice and inpatient hospice is felt appropriate.
Discharge patient from inpatient acute care from [facility] to Inpatient Hospice at [facility].
Total time of discharge 32 minutes
Anticipated Discharge: Today
Subjective/Interval History
-
Date of Service: September 21, 2024
This am was troubled with bit of agitation and may be pain
Objective Data
-
Vital Signs:
Vital Signs
Temp Pulse Resp BP Pulse Ox
98.7 F 103 16 114/72 98
09/21/24 07:20 09/21/24 07:20 09/21/24 07:20 09/21/24 07:20 09/21/24 07:20
Physical Exam
-
General: Comfortable (now)
Respiratory: Non Labored Respirations; Negative Accessory Resp Muscle Use
Neuro: Awake and Alert
Psych: Calm
--- NOTE | 2024-09-21 14:15 | W.DCSUMMARY ---
Discharge Summary
Discharge Data
Date of Admission: 09/20/24
Date of Discharge: 09/21/24
-
Pending Results: No
Hospital Course
Primary diagnosis:
Fever
Sepsis
Sacral decubitus ulcer
Secondary diagnosis:
Hx CVA with resultant left hemiparesis and dysphagia s/p PEG tube
Seizure disorder
NPH s/p MANAGER SOCIAL shunt
Hospital course:
Unfortunate gentleman who had a stroke 11 years ago and has been in persistent vegetative state since then without recovery presented with sepsis. Concern is from decubitus ulcer but other possibilities exist. At admission to ER and family
wanted comfort measures only and hospice. He was seen by hospice team and felt inpatient hospice appropriate and transition to inpatient hospice at [facility].
Discharge Plan
-
Referrals:
Michael Mar MD [Family Provider, Internal Medicine]
Prescriptions:
No Action
lamotrigine 25 MG tablet, chewable dispersible
50 mg feeding tube HS
Patient Comments:
09/20/24: Patient takes with Lamictal 200mg
lacosamide [Vimpat] 100 MG tablet
200 mg feeding tube HS
mirtazapine 15 MG tablet
15 mg feeding tube HS
lamotrigine 200 mg tablet
200 mg feeding tube HS
Rx Instructions:
take with 50mg lamotrigine
lorazepam 2 mg/mL concentrate
0.25 mg feeding tube BID@0800,1400
lorazepam 2 mg/mL concentrate
0.5 mg feeding tube HS
Discharge Date and Time
Print Language: NICARAGUAN
--- NOTE | 2024-09-21 15:30 | PTCARENOTE ---
Patient discharged to inpatient Hospice per Dr Grya & Hospice team.
== END 2024-09-21 15:32 | disposition hospice, inpatient (51) | DRG 872 ==
LOC: 2 NORTH 14:09
PROVIDERS: ADMITTING PHYSICIAN Internal Medicine; EMERGENCY PHYSICIAN Student in an Organized Health Care Education/Training Program; FAMILY PHYSICIAN Internal Medicine Geriatric Medicine
DX: A41.9 Sepsis, unspecified organism (principal); I69.354 Hemiplegia and hemiparesis following cerebral infarction affecting left non-dominant side; R40.3 Persistent vegetative state; L89.159 Pressure ulcer of sacral region, unspecified stage; Z98.2 Presence of cerebrospinal fluid drainage device; I10 Essential (primary) hypertension; F41.1 Generalized anxiety disorder; G40.909 Epilepsy, unspecified, not intractable, without status epilepticus; Z87.440 Personal history of urinary (tract) infections; E78.00 Pure hypercholesterolemia, unspecified; Z88.5 Allergy status to narcotic agent; Z88.3 Allergy status to other anti-infective agents; Z79.82 Long term (current) use of aspirin; H54.7 Unspecified visual loss; M21.372 Foot drop, left foot; Z66 Do not resuscitate; Z93.1 Gastrostomy status
CPT/HCPCS: 80053; 83605; 85025; 87040; 87147; 87150; 87205; 93005; 96361; 96374; 99285

== ENCOUNTER 2024-09-21 15:32 | Inpatient (IN) | payer OTHER, SELFPAY ==
--- NOTE | 2024-09-21 14:19 | HPS.HSE ---
Family Physician
-
Family Physician: INTERVIEWE UNKNOWN - PT NOT
Chief Complaint
-
Admitted for inpatient hospice care
History of Present Illness
Unfortunate gentleman who had a stroke 11 years ago and has been in persistent vegetative state since then without recovery presented with sepsis. Concern is from decubitus ulcer but other possibilities exist. At admission to ER and family
wanted comfort measures only and hospice. He was seen by hospice team and felt inpatient hospice appropriate and transition to inpatient hospice at [facility]
Medical History
Past Medical History
Past Medical History: Reports Other
Additional Past Medical History:
quadriplasty
Migraines
Seizures hypercholesterolemia
CVA hypertension
Prophylaxis due to stroke
Pneumonia
Diarrhea
Past Surgical History: Reports Other
Additional Past Surgical History:
Craniotomy/MESH MAN shunt
Right rotator cuff surgery
PEG tube
Social History
Tobacco: Non-smoker
Alcohol: None
Drug: None
Personal:
Living: With Family
Family History
Family History: Not pertinent
Allergies / Home Medications
Allergies reflects when Allergies were last updated in [employer].
Home Medications with original date entered in [employer]
Allergy/Medication List:
Allergies
Allergy/AdvReac Type Severity Reaction Status Date / Time
morphine Allergy Itching Verified 09/20/24 10:26
nitrofurantoin Allergy low WBCs Verified 09/20/24 10:26
macrocrystalline (From
Macrobid)
Home Medications
atorvastatin 10 mg tablet 10 mg feeding tube HS High cholesterol 08/04/14
sucralfate 1 gram tablet 1,000 mg feeding tube BID Gastrointestinal issue 08/04/14
amantadine HCl 50 mg/5 mL oral solution 100 mg PEG BID@0700,1300 motor symptoms 08/21/17
aspirin 325 mg tablet 325 mg feeding tube DAILY Blood clot prevention/tx 08/21/17
baclofen 10 mg tablet 10 mg feeding tube TID Muscle spasms 08/21/17
chlorhexidine gluconate 0.12 % mouthwash 15 ml MM BID 08/21/17
fluticasone propionate 50 mcg/actuation nasal spray,suspension 2 spray intranasal DAILYPRN PRN allergies 08/21/17
labetalol 100 mg tablet 25 mg feeding tube BIDPRN PRN SBP >140 08/21/17
lacosamide 100 mg tablet (Vimpat) 200 mg feeding tube BID Seizures 08/21/17
lamotrigine 100 mg tablet 200 mg feeding tube Q12H take with 50mgMENTAL 08/21/17
lamotrigine 25 mg chewable dispersible tablet 50 mg feeding tube BID take with 200mg/MENTAL 08/21/17
lorazepam 0.5 mg tablet 0.5 mg feeding tube HS anxiety 08/21/17
miconazole nitrate 2 % topical powder (Miconazorb AF) 1 applic topical BID palm and groin 08/21/17
mupirocin 2 % topical ointment 1 applic topical BID peg site 08/21/17
bisacodyl 5 mg tablet,delayed release 5 mg feeding tube DAILYPRN PRN constipation 04/30/18
clobetasol-emollient 0.05 % topical cream 1 applic TP BID 04/30/18
docusate sodium 50 mg/5 mL oral liquid 100 mg feeding tube DAILYPRN PRN constipation 04/30/18
mirtazapine 15 mg tablet 15 mg feeding tube HS Sleep 04/30/18
sodium phosphates 19 gram-7 gram/118 mL enema (Enema) 118 ml RC [id number] PRN no bm in 3 days 04/30/18
tamsulosin 0.4 mg capsule 0.4 mg feeding tube HS Urinary issue 04/30/18
venlafaxine 50 mg tablet 75 mg feeding tube TID Mental Health/Anxiety 04/30/18
acetaminophen 650 mg/20.3 mL oral solution 650 mg (20.3 mL) PO Q4HPRN PRN temp 100.5, moderate pain ##400 05/08/18
albuterol sulfate 2.5 mg/3 mL (0.083 %) solution for nebulization 2.5 mg (3 mL) inhalation R Q4HPRN PRN Wheezing, SOB ##1 07/12/19
cranberry extract 500 mg capsule 425 mg feeding tube TID Supplement 10/08/20
lisinopril 20 mg tablet 20 mg feeding tube DAILY 10/08/20
polyethylene glycol 3350 17 gram oral powder packet 17 grams feeding tube DAILYPRN PRN constipation 10/08/20
methenamine hippurate 1 gram tablet 1 g feeding tube BID Infection ##0 10/12/20
erythromycin 5 mg/gram (0.5 %) eye ointment 0.5 inch ophthalmic (eye) TID 08/13/23
hypromellose 2.5 % eye drops 1 drp ophthalmic (eye) Q2 08/13/23
methenamine hippurate 1 gram tablet (Hiprex) 1 g feeding tube BID 08/13/23
Review of Systems
-
Unable to obtain full review of systems at this time due to: Patient Non-verbal
A 12 point ROS was completed and negative except as noted: No
Physical Exam
Physical Exam
General: Comfortable
Respiratory: Non Labored Respirations; No Accessory Resp Muscle Use
Neuro: Awake, Alert and Oriented
Impression/Plan
-
Primary diagnosis:
Fever
Sepsis
Sacral decubitus ulcer
Secondary diagnosis:
Hx CVA with resultant left hemiparesis and dysphagia s/p PEG tube
Seizure disorder
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
Unfortunate gentleman who had a stroke 11 years ago and has been in persistent vegetative state since then without recovery presented with sepsis. Concern is from decubitus ulcer but other possibilities exist. At admission to ER and family
wanted comfort measures only and hospice. He was seen by hospice team and felt inpatient hospice appropriate and transition to inpatient hospice at [facility].
Start on comfort care measures
--- NOTE | 2024-09-21 15:03 | HOSPNOTE ---
Admitted patient onto hospice under [facility] level of care for management of pain and anxiety requiring IV pain and anxiety medication. Flacc moderate at time of visit, patient tense and shaking which spouse reports his how he responds to severe pain.
Patient received diazepam and dilauded prior to arrival with little relief. Spouse reports patient is more calm but still very uncomfortable. Coordinated care with Dr. Gray and Cary CAO. Requested additional doses of Diazepam and Dilauded be given
for elevated flacc. Discharge planning to continue.
[2024-09-21 16:08] VITALS: BP 114/72
[2024-09-21] MEDS: DILAUDID 0.5 MG IV ×4 (16:29→20:45)
[2024-09-21] MEDS: ROBINUL 0.2 MG IV (16:29)
[2024-09-21] MEDS: VALIUM INJECTION 5 MG IV ×3 (18:27→23:30)
[2024-09-21 19:56] VITALS: BP 115/74
[2024-09-21] MEDS: DILAUDID 50 IV (23:11)
[2024-09-22] MEDS: VALIUM INJECTION 5 MG IV ×5 (01:39→22:38)
[2024-09-22] MEDS: DILAUDID 0.5 MG IV ×7 (01:40→17:46)
--- NOTE | 2024-09-22 06:50 | W.PN.UPDATE ---
Update Note
Progress Note Update
Dilaudid infusion started after case reviewed with hospice synchronous motor assembler nurse as well as his nurse here. in agreement.
[2024-09-22 07:20] VITALS: BP 96/69
[2024-09-22] MEDS: ROBINUL 0.2 MG IV ×2 (08:20→12:20)
[2024-09-22] MEDS: TYLENOL/FEVERALL 650 MG RECTAL ×2 (11:07→22:39)
--- NOTE | 2024-09-22 11:26 | W.PN.UPDATE ---
Update Note
Progress Note Update
Patient on hospice
Last night patient was troubled with symptoms including shortness of breath. Was placed on IV Dilaudid drip currently on step 2.
Looks comfortable.
Febrile. Heart rate is elevated. Blood pressure systolic 96 today.
Continue with current hospice care.
Discussed with caregiver at bedside and RN.
--- NOTE | 2024-09-22 12:18 | HOSPNOTE ---
NO EXPERIENCE VISITED 54 YEAR OLD PATIENT TO CONDUCT INITIAL EXPANDING MACHINE OPERATOR ASSESSMENT. PATIENT RECENTLY ADMITTED ONTO HOSPICE SERVICES AND GIP LEVEL OF CARE WITH THE PRIMARY DIAGNOSIS OF SEPSIS. NURSE REPORTED PATIENT STEP 2 DRIP AND RESTING WITH PAID
CAREGIVER DANIAL AT PATIENT'S BEDSIDE. EXPANDING MACHINE OPERATOR GREETED PATIENT AND PCG DANIAL UPON ENTERING PATIENT'S ROOM. PATIENT LYING IN BED WITH HIS FAVORITE BLANKET RESTING AND APPEARED TO BE COMFORTABLE, NO SIGNS OF PAIN AND/OR DISTRESSED OBSERVED. DANIAL
SITTING NEAR PATIENT'S BEDSIDE HOLDING PATIENT'S HAND. SPOUSE JOVANI ON THE PHONE ON HER WAY TO VISIT PATIENT. JOVANI ARRIVED AND GREETED EXPANDING MACHINE OPERATOR. JOVANI REPORTED SHE AND [place] AND HAVE BEEN FOR
29 YEARS, THEY HAVE 5 CHILDREN AGES 18 TO 29 YEARS OF AGE AND NO GRANDCHILDREN. PATIENT HAS A SISTER JOSE DANIEL WHO RESIDES IN [place] AND A BROTHER CLOVER WHO RESIDES IN [place]. JOSE DANIEL COMING TO TOWN TODAY. JOVANI REPORTED SHE'S DOING OKAY AND WOULD BE
A DIASTER IF IT WASN'T FOR DANIAL, HER CHILDREN, PARENTS, AND 4 BEST FRIENDS. JOVANI REPORTED THE CHILDREN ARE STRUGGLING IN DIFFERENT WAYS BUT ARE SUPPORTING EACH OTHER. JOVANI REPORTED PATIENT IS BRILLIANT AND FUNNY, HE WENT TO [facility] [place] AT
THE AGE OF 16. 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 SPOUSE REPORTED SHE'S CONCERNED ABOUT DANIAL BECAUSE HE'S HER FRIEND/FAMILY. SPOUSE REPORTED PEOPLE WOULDN'T
UNDERSTAND PATIENT AND SPOUSE RELATIONSHIP BUT HE'S ALIVE BECAUSE OF HER, SHE'S AN YOLANDA WITHOUT WINGS. DANIAL REPORTED SHE MET PATIENT 11 YEARS AGO WHEN HE WAS GIVEN 2 MONTHS TO LIVE AND HAS BEEN WITH PATIENT EVERY SINCE THEN. DANIAL REPORTED
PATIENT IS LIKE A BROTHER TO HER. SHE REPORTED SHE HAS HER FAMILY, AND HER BEST FRIEND WALTER FOR SUPPORTS. SPOUSE SAT DOWN AND HELD PATIENT'S HAND AND HE ASKED FOR DANIAL. FAMILY IS CARING AND SUPPORTIVE AND APPEARED TO BE COPING APPROPRIATELY.
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 EXPANDING MACHINE OPERATOR PROVIDED SPOUSE WITH THE CONTACT INFORMATION FOR THE [facility] [phone] AND [employer] [phone] PATIENT WOULD LIKE BODY TO BE DONATED. FAMILY IS
INTERESTED IN BEREAVEMENT SERVICES. PATIENT DECLINED PRAYER. MUCH EMOTIONAL SUPPORT PROVIDED.
PATIENT MEETS [facility] FOR SN ASSESSMENTS, MANAGEMENT OF PAIN, AND ANXIETY REQUIRING IV MEDICATIONS THAT COULD NOT BE MANAGED AT HOME AND/OR IN AN OUTPATIENT SETTING. DISCHARGE PLANNING CONTINUES.
EXPANDING MACHINE OPERATOR WILL CONDUCT VISITS ONCE A WEEK WHILE ON GIP LEVEL OF CARE TO PROVIDE SUPPORTIVE SERVICES AND MONITOR FOR ADDITIONAL SERVICES.
--- NOTE | 2024-09-22 12:34 | HOSPNOTE ---
Patient remains inpatient hospice appropriate for the management of pain and anxiety that could not be managed in the outpatient setting. Patient is currently on step 2 of dilaudid infusion. Patient caregiver bedside with patient. Patient resting
comfortably in the bed. to arrive later today. Informal report with NAS[facility] Crane, agreeable with plan of care. Hospice will continue to visit daily.
--- NOTE | 2024-09-22 12:40 | HOSPNOTE ---
"Artemio was resting comfortably, nonverbal. Paula was at his side, holding his hand. She believes he is at peace, and shared that she would like final prayers for him at a later time. His caregiver Karla was also present. Land Surveyor Manager "Hi"provided emotional and spiritual support through presence, dialogue, and words of comfort. Will continue support through visits 2x week."
--- NOTE | 2024-09-22 13:33 | CM ---
CM following re: discharge planning.
Pt continues on inpatient hospice care with hospice.
CM is available for emotional support.
[2024-09-22] MEDS: DILAUDID 1 MG IV ×4 (15:46→23:03)
[2024-09-22 22:20] VITALS: BP 97/63
[2024-09-23] MEDS: DILAUDID 1.5 MG IV ×6 (00:41→13:17)
[2024-09-23] MEDS: VALIUM INJECTION 5 MG IV ×6 (00:47→16:59)
[2024-09-23] MEDS: ROBINUL 0.2 MG IV ×3 (00:47→13:14)
[2024-09-23 09:34] VITALS: BP 50/32
--- NOTE | 2024-09-23 12:06 | W.PN.UPDATE ---
Update Note
Progress Note Update
Patient comfortable on IV Dilaudid drip. Apnea noted.
Discussed with the and the caregiver at bedside who also finds him comfortable.
Continue with current hospice measures.
--- NOTE | 2024-09-23 12:54 | CHAP ---
After receiving a call from Artemio's nurse that his had requested the research contracts supervisor us marketing director come to give Last Rites, I asked a lay children's ministry director to go up to see Artemio to confirm that he is [employer]. His , caregiver and sister decided that it would
be best not to have the us marketing director come as they believed it would upset Artemio. So no us marketing director has come to give Last Rites as of now.
[2024-09-23] MEDS: DILAUDID 50 IV (13:14)
--- NOTE | 2024-09-23 13:31 | HOSPNOTE ---
Patient is actively dying, most likely will today, respirations are 2-3 long periods of apnea noted. Patient will be seen daily and patient continues to be inpatient appropriate. Emotional support provided to spouse and family.
[2024-09-23] MEDS: DILAUDID 2 MG IV ×2 (16:58→20:28)
--- NOTE | 2024-09-23 17:33 | PTCARENOTE ---
Family requesting pt is not turned today due to his clinical status. Family agreeing to turn pt if he is still here by the end of today. Manual BP 50/32.
[2024-09-23 21:17] VITALS: BP 66/47
--- NOTE | 2024-09-24 02:52 | DOWNTIME ---
There was a [employer] Client Archival Studies Professor Downtime on 09/24/2024 from 0100 to 09/24/2024 at 0235. Downtime documentation of patient's care, including medication administrations, has been reconciled in the electronic record per guidelines. Refer to the
patient's paper chart under the miscellaneous tab to see printed paper medication records and downtime forms.
--- NOTE | 2024-09-24 05:48 | W.PN.DEATH ---
Pronouncement of
-
Called to see patient to pronounce.
No spontaneous heart tones or respirations noted.
Patient not responsive to verbal stimuli.
Patient is pronounced .
Family is at the bedside
Time of : 04:45
Date of : 09/24/24
Family Notified: Yes
--- NOTE | 2024-09-24 05:55 | PTCARENOTE ---
Inpatient hospice patient found pulseless, not breathing and unresponsive to stimuli. Family in room, notified of this change. DIRECTOR CLINICAL DATA notified and pronounced time of at 0445. [facility] called. Postmortem care completed for patient.
--- NOTE | 2024-09-24 09:32 | W.DCSUMMARY ---
Discharge Summary
Discharge Data
Date of Admission: 09/21/24
Date of Discharge: 09/24/24
-
Pending Results: No
Hospital Course
Primary diagnosis:
Hospice care
Fever
Sepsis
Sacral decubitus ulcer
Secondary diagnosis:
Hx CVA with resultant left hemiparesis and dysphagia s/p PEG tube
Seizure disorder
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
Hospital course:
Unfortunately patient did not persistent vegetative state Intracranial bleed in the remote past was initially admitted to acute medical care at [facility] for fever, sepsis was transitioned to inpatient hospice and peacefully
today at 04: 45 AM.
Rest in peace.
Discharge Plan
-
Patient Disposition:
Date/Time
Date/Time: 09/24/24 04:45
Discharge Date and Time
Discharge Date/Time: 09/24/24 06:47
Print Language: MONGOLIAN
== END 2024-09-24 06:47 | disposition expired | DRG 951 ==
LOC: 2 NORTH 15:32
PROVIDERS: ADMITTING PHYSICIAN Internal Medicine
DX: Z51.5 Encounter for palliative care (principal); L89.153 Pressure ulcer of sacral region, stage 3; A41.9 Sepsis, unspecified organism; I69.354 Hemiplegia and hemiparesis following cerebral infarction affecting left non-dominant side; R40.3 Persistent vegetative state; E78.00 Pure hypercholesterolemia, unspecified; I10 Essential (primary) hypertension; G40.909 Epilepsy, unspecified, not intractable, without status epilepticus; R13.10 Dysphagia, unspecified; I69.391 Dysphagia following cerebral infarction; G43.909 Migraine, unspecified, not intractable, without status migrainosus; Z79.82 Long term (current) use of aspirin; Z79.899 Other long term (current) drug therapy; Z93.1 Gastrostomy status; Z98.2 Presence of cerebrospinal fluid drainage device